=== PATIENT | female | born 1960 | race Caucasian/White ===

== ENCOUNTER 2024-04-12 13:05 | Inpatient (IN) | payer BC, SELFPAY ==
[2024-04-12] VITALS (17 sets, daily range): BP systolic 116–163; BP diastolic 66–99; PULSE 97–110; RESP 18–26; TEMP 36.8–36.9; O2SAT 81–98; BMI 17.0; BMI 16.4
--- NOTE | 2024-04-12 14:37 | ED.GENADULT ---
HPI - General Adult General Date Seen: 04/12/24 Chief complaint: Shortness of Breath/Dyspnea Stated complaint: SOB Time Seen by Provider: 04/12/24 14:06 History of Present Illness HPI narrative: Very pleasant 63-year-old female presenting to the ER today by EMS for evaluation of shortness of breath and hypoxia. She reports a longstanding history of COPD and she is on albuterol, Symbicort, nebulizers. She is not on home oxygen but she does have a [id number] home pulse oximeter and frequently will measure her saturations in the 86-88% range at home. She is not on long-term oral steroids. She began to feel sick about a week and half for 2 weeks ago with cough, sore throat, body aches, and fever and was positive for influenza. She is as on the whole she is over the influenza now and has been better for about a week. However she has a persistent cough. It is productive of green ?junky? sputum. No hemoptysis. For the past couple of days she has had increasing shortness of breath. She has been using all of her at home nebulizers and inhalers, in fact giving herself a neb 3 times last night and a couple times this morning but feels like they are not working. Last night on her home pulse oximeter she had sats in the 60s. She said she thought she was going to last night and wanted to call the ambulance but did not come in. She apparently is afraid of gossip from her coworkers. 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 She has a history of coronary disease with an angiogram and balloon angioplasty at age 36. No stents. No history of CHF. No recent swelling in her legs. No history of PE. No recent swelling in her legs. Related Data Home Medications ?Medication ?Instructions ?Recorded ?Confirmed albuterol sulfate 90 mcg/actuation 2 inh inhalation Q6H PRN 04/12/24 04/12/24 aerosol inhaler aspirin 325 mg capsule 325 mg PO DAILY 04/12/24 04/12/24 budesonide-formoterol HFA 160 2 puff inhalation BID 04/12/24 04/12/24 mcg-4.5 mcg/actuation aerosol inhaler fluticasone fur. 200 mcg-umeclid 1 ea inhalation DAILY 04/12/24 04/12/24 62.5 mcg-vilant 25 mcg inhalat.powder (Trelegy Ellipta) ipratropium 0.5 mg-albuterol 3 mg 1.5 ml inhalation Q6H PRN 04/12/24 04/12/24 (2.5 mg base)/3 mL nebulization soln olmesartan 20 mg tablet 20 mg PO DAILY 04/12/24 04/12/24 sertraline 50 mg tablet 50 mg PO QAM 04/12/24 04/12/24 simvastatin 40 mg tablet 40 mg PO QPM 04/12/24 04/12/24 Allergies Allergy/AdvReac Type Severity Reaction Status Date / Time latex Allergy Intermediate Verified 04/12/24 13:46 [facility] Social History Smoking Status: Current every day smoker What tobacco products do you use: cigarettes Do you use any of these nicotine containing products: None How often do you have a drink containing alcohol: never How often do you have six or more drinks on one occasion: Never AUDIT-C Alcohol total score: 0 Non-prescribed substance use: denies use Exam Narrative: Exam Narrative: Constitutional: Appears well-developed and well-nourished. Alert. Conversant. Non toxic. Breathing easily with nasal cannula oxygen sats 94%. However lungs are quite tight and very diminished lung sounds with wheezing bilaterally HENT: Head: Atraumatic. Nose: Nose normal. Mouth/Throat: Oral mucosa is clear and moist. no trismus. Pharynx normal. Tonsils symmetric. No tonsillar enlargement, erythema, or exudate. Eyes: Conjunctivae normal. EOM normal. Pupils equal, round, and reactive to light. No scleral icterus. Neck: Normal range of motion. Neck supple. No tracheal deviation present. Cardiovascular: Normal rate, regular rhythm. No gallop. No friction rub. No murmur heard. Symmetric radial artery pulses Pulmonary/Chest: Effort normal. No stridor. No respiratory distress. Very tight lung sounds with diminished aeration and bilateral wheezes. Questionable right basilar infiltrate Abdominal: Soft.. No distension. No mass. No tenderness. No rebound. No guarding. Musculoskeletal: RUE: Normal range of motion. No tenderness. No deformity LUE: Normal range of motion. No tenderness. No deformity RLE: Normal range of motion. No edema. No tenderness. No deformity LLE: Normal range of motion. No edema. No tenderness. No deformity Lymph: No cervical adenopathy. Neurological: Alert and oriented to person, place, and time. Normal strength. CN II-VII intact. No sensory deficit. GCS eye subscore is 4. GCS verbal subscore is 5. GCS motor subscore is 6. Normal coordination Skin: Skin is warm and dry. No rash noted. No pallor. Normal capillary refill. Psychiatric: Normal mood. Normal affect. Polite. Mental status normal. Const: Vital Signs, click to edit/add: Vital Signs - 24 hr 04/12/24 13:37 04/12/24 13:45 04/12/24 15:18 Temperature 98.5 F Pulse Rate Pulse Rate [Right Pulse Oximeter] 103 H Respiratory Rate 26 H Blood Pressure Blood Pressure [Ri ght Upper Arm] 155/96 H Pulse Oximetry 94 88 90 Oxygen Delivery Me thod Room Air Room Air Nasal Cannula Oxygen Flow Rate 2 2 04/12/24 15:20 04/12/24 15:30 04/12/24 15:31 Temperature Pulse Rate 100 102 H 101 H Pulse Rate [Right Pulse Oximeter] Respiratory Rate Blood Pressure 146/87 H Blood Pressure [Ri ght Upper Arm] Pulse Oximetry 97 95 94 Oxygen Delivery Me thod Nasal Cannula Nasal Cannula Nasal Cannula Oxygen Flow Rate 2 2 2 04/12/24 15:45 04/12/24 16:00 04/12/24 16:01 Temperature Pulse Rate 97 98 101 H Pulse Rate [Right Pulse Oximeter] Respiratory Rate Blood Pressure 116/90 H Blood Pressure [Ri ght Upper Arm] Pulse Oximetry 95 98 98 Oxygen Delivery Me thod Nasal Cannula Nasal Cannula Nasal Cannula Oxygen Flow Rate 2 2 2 04/12/24 16:15 04/12/24 16:30 04/12/24 16:34 Temperature Pulse Rate 107 H 106 H 106 H Pulse Rate [Right Pulse Oximeter] Respiratory Rate 26 H 18 21 Blood Pressure Blood Pressure [Ri ght Upper Arm] Pulse Oximetry 88 92 92 Oxygen Delivery Me thod Room Air Room Air Nasal Cannula Oxygen Flow Rate 2 Course Course ED Course: Recheck-says she feels slightly better after 1st DuoNeb. Repeat lung exam still reveals fairly tight wheezing bilaterally. I turned off her oxygen. Sats drifted down to about 89% on room air. 2nd DuoNeb ordered. Recheck-still on room air sats drifting down to 85%. Recheck-after 2nd DuoNeb lung sounds slightly improved but now seeming more diminished on the left than on the right. Still wheezy. Patient does not feel she can tolerate anymore bronchodilator this point because it makes her nauseous. Because of hypoxia placed back on nasal cannula, 2 L. Reevaluation(s) Reevaluation #1: Recheck-sats 85% on room air . It placed back on nasal cannula 2 L and sats came up to about 92-93. Vital Signs Vital signs: Initial Vital Signs Temperature 98.5 F 04/12/24 13:37 Temperature Source Temporal Artery Scan 04/12/24 13:37 Pulse Rate 103 H 04/12/24 13:37 Pulse Rhythm Regular 04/12/24 13:37 Pulse Strength 3+ Normal 04/12/24 13:37 Respiratory Rate 26 H 04/12/24 13:37 Blood Pressure 155/96 H 04/12/24 13:37 Blood Pressure Mean 115 H 04/12/24 13:37 Blood Pressure Position Sitting 04/12/24 13:37 Pulse Oximetry 94 04/12/24 13:37 Oxygen Delivery Method Room Air 04/12/24 13:37 Vital Signs Temperature 98.5 F 04/12/24 13:37 Pulse Rate 103 H 04/12/24 13:37 Respiratory Rate 26 H 04/12/24 13:37 Blood Pressure 155/96 H 04/12/24 13:37 Pulse Oximetry 94 04/12/24 13:37 Oxygen Delivery Method Room Air 04/12/24 13:37 Temperature 98.3 F 04/12/24 17:00 Pulse Rate 108 H 04/12/24 17:00 Respiratory Rate 20 04/12/24 17:00 Blood Pressure 163/99 H 04/12/24 17:00 Pulse Oximetry 81 L 04/12/24 17:00 Oxygen Delivery Method Room Air 04/12/24 17:00 Oxygen Flow Rate 2 04/12/24 16:34 Medications Administered Medications: Discontinued Medications Generic Name Dose Route Start Last Admin Trade Name Freq PRN Reason Stop Dose Admin Albuterol/Ipratropium 1 neb 04/12/24 14:30 04/12/24 15:03 Iprat-Albut 0.5-2.5 Mg/3 Ml Neb 04/12/24 14:31 1 neb ONCE ONE Administration Albuterol/Ipratropium 1 neb 04/12/24 15:53 04/12/24 16:00 Iprat-Albut 0.5-2.5 Mg/3 Ml Neb IH 04/12/24 15:54 1 neb ONCE ONE Administration Doxycycline Hyclate 100 mg 04/12/24 16:31 04/12/24 16:36 Doxycycline Hyclate 100 Mg PO 04/12/24 16:32 100 mg ONCE ONE Administration Methylprednisolone Sodium Succinate 125 mg 04/12/24 14:30 04/12/24 15:03 Methylprednisolone Sod Succ 62.5 Mg/Ml (125) IVP 04/12/24 14:31 125 mg ONCE ONE Administration Medical Decision Making MDM Narrative Medical decision making narrative: Them very pleasant 63-year-old female with what sounds like fairly severe COPD. She is on multiple controller medications but not on home oxygen her long-term oral steroids. She had influenza about a week or 2 ago and is largely gotten over that but has a persistent cough productive of chunky green sputum this week. She had worsening shortness of breath yesterday and last night had sats dangerously low down into the 60s on room air based on her home pulse oximetry readings. She has been trying to treat herself aggressively with her Symbicort, albuterol inhaler, nebulizers, and other COPD meds but is just not getting better. She gave herself and that just prior to coming into the ER and as result sats were up into the mid to high 80s when she presented at triage. Sats came up to the 90s on nasal cannula. Workup here shows no evidence for active influenza or COVID with negative COVID/influenza/RSV PCR. Chest x-ray is negative for pneumonia by my read but there is potentially an atypical pneumonia based on radiology reads. Also potential for CHF but clinically that is not present. I am strongly suspicious for an infectious etiology Laboratory workup does show leukocytosis also consistent with infection. She was treated with nebs and steroids here in the ER. Lung sounds are improving but still quite wheezy and tight. Patient received 2 DuoNebs here in the ER and will some improvement her lung sounds but persistent hypoxia with sats drifting down to about 85% a resting in bed breathing room air. Sats are fortunately improved nicely with nasal cannula. At this point she is not showing signs of altered mental status, progressive signs of respiratory fatigue or tachypnea where she is likely to require of story BiPAP or endotracheal intubation. Patient would prefer to go home but ultimately agrees to be admitted because of her significant hypoxia. strongly wants her to be admitted. Discussed with our hospitalist, Dr. Maya who graciously accepts the patient for admission Lab Data Labs: Lab Results 04/12/24 04/12/24 Range/Units 14:32 15:10 WBC 13.82 H (4.50-11.00) K/uL RBC 5.68 H (4.00-5.20) m/uL Hgb 16.1 H (12.0-16.0) gm/dL Hct 50.1 (33.0-51.0) % MCV 88 (80-100) fL MCH 28 (26-34) pg MCHC 32 (32-36) gm/dL RDW Coeff of Xiomy 14.5 (11.5-15.5) % Plt Count 438 (140-440) K/uL Neut % (Auto) 81.5 H (42.0-72.0) % Lymph % (Auto) 9.8 L (20-44) % [place] % (Auto) 7.6 (0.0-11.0) % Eos % (Auto) 0.6 (0.0-7.0) % Baso % (Auto) 0.1 (0.0-3.0) % Neut # (Auto) 11.30 H (1.7-7.0) K/uL Lymph # (Auto) 1.40 (0.90-2.90) K/uL [place] # (Auto) 1.10 H (0.00-0.90) K/UL Eos # (Auto) 0.10 (0.00-0.50) K/uL Baso # (Auto) 0.00 (0.00-0.30) K/uL Abs Immat Gran (auto) 0.10 (0.00-0.30) K/uL Imm/Tot Granulo (auto) 0.4 % Sodium 139 (135-149) mmol/L Potassium 3.6 (3.6-5.1) mmol/L Chloride 99 (96-114) mmol/L Carbon Dioxide 31 (20-32) mmol/L Anion Gap 9 (7-15) mEq/L BUN 13 (7-30) mg/dL Creatinine 0.5 (0.5-1.5) mg/dL Estimated Creat Clear 35.54 Estimated GFR 107 ml/min Glucose 96 (60-115) mg/dL Lactate 1.1 (0.5-1.9) mmol/L Calcium 9.9 (8.4-10.6) mg/dL SARS-CoV-2 (PCR) Negative SARS-CoV-2 (Negative) Influenza Type A (PCR) Negative PCR FLU A (Negative) Influenza Type B (PCR) Negative PCR FLU B (Negative) RSV (PCR) Negative PCR RSV (Negative) POC Troponin I 0.01 (0.01-0.04) ng/ml ECG Data Attestation: I personally reviewed and interpreted this ECG as follows: Interpretation: Sinus tachycardia (computer interpretation is atrial flutter with 2:1 av conduction but I think this is inaccurate.) Rate: 102 OR: 120 QRS axis: Normal axis. ST segment/T wave: No ST segment elevation or depression. QTc: 440 Discharge Plan Discharge Clinical Impression: Asthma exacerbation in COPD, Hypoxia, Atypical pneumonia Patient Disposition: Admitted As Observation
[2024-04-12] MEDS: IPRAT-ALBUT 0.5-2.5 MG/3 ML NEB 1 NEB IH ×4 (15:03→23:03)
[2024-04-12] MEDS: METHYLPREDNISOLONE SOD SUCC 62.5 MG/ML (125) 125 MG IVP (15:03)
[2024-04-12 15:22] LABS: Basophils Percent Auto 0.1 % (0.0-3.0); Eosinophils Percent Auto 0.6 % (0.0-7.0); Hematocrit 50.1 % (33.0-51.0); Hemoglobin* 16.1 gm/dL (12.0-16.0); Immature Granulocytes Pct Auto 0.4 %; Lymphocytes Percent Auto 9.8 % (20-44); Mean Corpuscular HGB Conc 32 gm/dL (32-36); Mean Corpuscular Hemoglobin 28 pg (26-34); Mean Corpuscular Volume 88 fL (80-100); Monocytes Percent Auto 7.6 % (0.0-11.0); Neutrophils Percent Auto 81.5 % (42.0-72.0); Platelet Count* 438 K/uL (140-440); RDW Coefficient of Variation % 14.5 % (11.5-15.5); Red Blood Count 5.68 m/uL (4.00-5.20); White Blood Count* 13.82 K/uL (4.50-11.00)
[2024-04-12 15:23] LABS: Lactate* 1.1 mmol/L (0.5-1.9)
[2024-04-12 15:25] LABS: Troponin, Point-of-Care* 0.01 ng/ml (0.01-0.04)
[2024-04-12 15:26] LABS: Slide Review Reflex No
[2024-04-12 15:46] LABS: Chloride* 99 mmol/L (96-114); Potassium* 3.6 mmol/L (3.6-5.1); Sodium* 139 mmol/L (135-149)
[2024-04-12 15:49] LABS: Anion Gap 9 mEq/L (7-15); Blood Urea Nitrogen* 13 mg/dL (7-30); Carbon Dioxide* 31 mmol/L (20-32); Creatinine* 0.5 mg/dL (0.5-1.5); Est. Creatinine Clearance* 35.54; Estimated Glomerular Filt Rate 107 ml/min; Glucose* 96 mg/dL (60-115)
[2024-04-12 15:50] LABS: Calcium* 9.9 mg/dL (8.4-10.6)
[2024-04-12 15:59] LABS: PCR FLU A Negative PCR FLU A (Negative); PCR FLU B Negative PCR FLU B (Negative); PCR RSV Negative PCR RSV (Negative); SARS PCR* Negative SARS-CoV-2 (Negative)
[2024-04-12] MEDS: DOXYCYCLINE HYCLATE 100 MG PO (16:36)
--- NOTE | 2024-04-12 17:39 | PM.IMHP1 ---
Hospitalist- H&P: HPI History of Present Illness Date Seen: 04/12/24 Chief complaint: SOB Narrative: Vicky Chang is a 63 year old female with past medical history of hypertension, coronary artery disease, COPD, tobacco use disorder who presents to ED due to shortness of breath. Patient states that she has a pulse oximeter that showed O2 sat going down to mid 60s the night before. Patient states that she is having chest tightness in addition to severe dyspnea with and without exertion. Patient denies fevers, chest pain, palpitations or lightheadedness. She states that she has a cough at baseline and white phlegm but about 2 days ago she started to have worsening cough and worsening phlegm production that is greenish in color. No home oxygen. She had influenza a infection about 10 days ago. Patient states that she is compliant on her Symbicort inhaler daily and a nebulizer daily. She denies frequent oral steroid use, denies admissions or intubations for COPD exacerbation. At the ED, patient was found hypoxic with O2 sat at 86%. Patient was also in sinus tachycardia. Chest x-ray does not show infiltrates or consolidation. Patient was given doxycycline orally and IV Solu-Medrol 125 mg at the ED and then admitted for further evaluation and management. Review of Systems Status of ROS: Reports: 6 or more systems reviewed and unremarkable except as noted in History and below [facility] Social History What is your current living situation?: I presently have a place to live Problems where you live: no known problems Problems where you live details: none In the past 12 months, utilities in danger of being shut off: no In past 12 months, lack of transportation kept you from medical appts, meetings, work, or getting things needed for daily living: no In the past 12 mos, have been you worried that your food would run out before you had money to buy more?: never true In the past 12 mos, the food you bought just didn't last and you didn't have money to buy more?: never true Highest level of school completed/degree received: 12th grade, no diploma Smoking Status: Current every day smoker What tobacco products do you use: cigarettes Smoking packs per day: 1 Smoking cigarettes per day: 20.0 Do you use any of these nicotine containing products: None How often do you have a drink containing alcohol: never How often do you have six or more drinks on one occasion: Never AUDIT-C Alcohol total score: 0 Non-prescribed substance use: denies use Caffeine: Yes (jenni nice) How often does anyone, including family, friends and others, physically hurt you: never How often does anyone, including family, friends and others, insult or talk down to you: never How often does anyone, including family, friends and others, threaten you with harm: never How often does anyone, including family, friends and others, scream or curse at you: never service: No Meds Home Medications and Allergies Home Medications ?Medication ?Instructions ?Recorded ?Confirmed ?Type albuterol sulfate 90 mcg/actuation 2 inh inhalation Q6H PRN 04/12/24 04/12/24 History aerosol inhaler aspirin 325 mg capsule 325 mg PO DAILY 04/12/24 04/12/24 History budesonide-formoterol HFA 160 2 puff inhalation BID 04/12/24 04/12/24 History mcg-4.5 mcg/actuation aerosol inhaler fluticasone fur. 200 mcg-umeclid 1 ea inhalation DAILY 04/12/24 04/12/24 History 62.5 mcg-vilant 25 mcg inhalat.powder (Trelegy Ellipta) ipratropium 0.5 mg-albuterol 3 mg 1.5 ml inhalation Q6H PRN 04/12/24 04/12/24 History (2.5 mg base)/3 mL nebulization soln olmesartan 20 mg tablet 20 mg PO DAILY 04/12/24 04/12/24 History sertraline 50 mg tablet 50 mg PO QAM 04/12/24 04/12/24 History simvastatin 40 mg tablet 40 mg PO QPM 04/12/24 04/12/24 History Allergies Allergy/AdvReac Type Severity Reaction Status Date / Time latex Allergy Intermediate Verified 04/12/24 13:46 Exam Narrative: Exam Narrative: Physical exam GENERAL: Thin pleasant lady, on O2 NC at 2L/min. HEAD AND NECK: Atraumatic, normocephalic CARDIOVASCULAR: RRR. Normal S1, S2. No murmurs. RESPIRATORY: Reduced air entry B/L. +ve wheezes. NEUROLOGY: Alert, awake, oriented X 3. Normal speech. PSYCH: Normal mood, normal affect. Const: Vital Signs, click to edit/add: Vital Signs - 24 hr 04/12/24 13:37 04/12/24 13:45 04/12/24 15:18 Temperature 98.5 F Pulse Rate Pulse Rate [Right Pulse Oximeter] 103 H Pulse Rate [Right Radial] Respiratory Rate 26 H Blood Pressure Blood Pressure [Ri ght Arm] Blood Pressure [Ri ght Upper Arm] 155/96 H Pulse Oximetry 94 88 90 Oxygen Delivery Me thod Room Air Room Air Nasal Cannula Oxygen Flow Rate 2 2 04/12/24 15:20 04/12/24 15:30 04/12/24 15:31 Temperature Pulse Rate 100 102 H 101 H Pulse Rate [Right Pulse Oximeter] Pulse Rate [Right Radial] Respiratory Rate Blood Pressure 146/87 H Blood Pressure [Ri ght Arm] Blood Pressure [Ri ght Upper Arm] Pulse Oximetry 97 95 94 Oxygen Delivery Me thod Nasal Cannula Nasal Cannula Nasal Cannula Oxygen Flow Rate 2 2 2 04/12/24 15:45 04/12/24 16:00 04/12/24 16:01 Temperature Pulse Rate 97 98 101 H Pulse Rate [Right Pulse Oximeter] Pulse Rate [Right Radial] Respiratory Rate Blood Pressure 116/90 H Blood Pressure [Ri ght Arm] Blood Pressure [Ri ght Upper Arm] Pulse Oximetry 95 98 98 Oxygen Delivery Me thod Nasal Cannula Nasal Cannula Nasal Cannula Oxygen Flow Rate 2 2 2 04/12/24 16:15 04/12/24 16:30 04/12/24 16:34 Temperature Pulse Rate 107 H 106 H 106 H Pulse Rate [Right Pulse Oximeter] Pulse Rate [Right Radial] Respiratory Rate 26 H 18 21 Blood Pressure Blood Pressure [Ri ght Arm] Blood Pressure [Ri ght Upper Arm] Pulse Oximetry 88 92 92 Oxygen Delivery Me thod Room Air Room Air Nasal Cannula Oxygen Flow Rate 2 04/12/24 17:00 Temperature 98.3 F Pulse Rate Pulse Rate [Right Pulse Oximeter] Pulse Rate [Right Radial] 108 H Respiratory Rate 20 Blood Pressure Blood Pressure [Ri ght Arm] 163/99 H Blood Pressure [Ri ght Upper Arm] Pulse Oximetry 81 L Oxygen Delivery Me thod Room Air Oxygen Flow Rate Hospitalist - H&P: Result Labs Labs: Short CBC 04/12/24 Range/Units 15:10 WBC 13.82 H (4.50-11.00) K/uL Hgb 16.1 H (12.0-16.0) gm/dL Hct 50.1 (33.0-51.0) % Plt Count 438 (140-440) K/uL [facility] 04/12/24 15:10 Sodium 139 Potassium 3.6 Chloride 99 Carbon Dioxide 31 BUN 13 Creatinine 0.5 Glucose 96 Calcium 9.9 ECG Attestation: I personally reviewed and interpreted this ECG as follows: ECG interpretation date: 04/12/24 Interpretation: Sinus tachycardia Normal QTC Imaging Chest x-ray: Attestation: I have reviewed the pertinent imaging results. Radiologist's impression: Indication: Productive cough, hypoxia and recent influenza Comparison: None available. Technique: PA and lateral views of the chest Findings: There is hyperinflation and diffuse interstitial thickening with basilar atelectasis and parenchymal scar without dense consolidation, effusion, or pneumothorax. The cardiomediastinal silhouette is within normal limits. The bony thorax is grossly intact. Impression: Hyperinflation with diffuse interstitial thickening which may represent pulmonary vascular congestion and/or bronchial prominence in the setting of atypical infectious changes. No dense consolidation. Dictated by Wenceslao Hernandez MD @ 04/12/2024 3:19:23 PM Assessment and Plan Assessment and plan (1) Acute on chronic hypoxic respiratory failure: Problem comment: -Hypoxia, worsening cough and worsening phlegm production that is greenish in color. Needing O2 NC at 2 L/min. -No home oxygen. -She had influenza a infection about 10 days ago. -Patient states that she is compliant on her Symbicort inhaler daily and a nebulizer daily. -She denies frequent oral steroid use, denies admissions or intubations for COPD exacerbation. -Ordered VBG, no AG on BMP. -ordered Solu-Medrol 80 mg q.8 hours -start azithromycin 500 mg q.day -DuoNeb nebulizer and budesonide nebulizer. Status: Acute (2) COPD exacerbation: Problem comment: -as above -Patient needs outpatient evaluation by senior technical specialist to better control her COPD -assess for need for home oxygen Status: Acute (3) Coronary artery disease: Problem comment: -patient states that she had an MRI once she was 36 years old and that her catheterization showed high-grade blockage but she was not stented. -I discussed with the patient the need for more evaluation of her coronary artery disease as an outpatient by a stress test. -EKG does not show ischemic changes Status: Acute (4) Hypertension: Status: Acute Total Time Spent Total Time Spent: Time spent: Today I spent 75 minutes seeing the patient, discussing the patient with ER staff, reviewing Expanse and EPIC notes/diagnostics, discussing the care plan with our care time that includes social work, PT/OT, pharmacy, RT, nursing home and documenting my impressions and plan in the medical record.
[2024-04-12] MEDS: ENOXAPARIN 30 MG/0.3ML INJ SUBCUT (18:41)
[2024-04-12] MEDS: NICOTINE 14 mg PATCH 1 PATCH TRANSDERMA (18:43)
--- NOTE | 2024-04-12 19:12 | PC.NURSE ---
End of Shift: Patient pleasant and cooperative arrived to floor about 1710. Patient hypertensive on admission but stable, lungs diminished, BS WNL, IV SL and intact. Patient on 0.5 L NC sating 90-91%. Patient with moist cough that is productive at times, patient reports sputum is green. Patient denies pain, and independent in room. Patient with small appetite eating about 25% of dinner, tolerating regular diet and urinating well.
[2024-04-12] MEDS: AZITHROMYCIN 250 MG TABLET 500 MG PO (20:43)
[2024-04-12] MEDS: SODIUM CHLORIDE 0.9 % (FLUSH) 10 ML SYRINGE 5 ML IVF (21:17)
[2024-04-12] MEDS: METHYLPREDNISOLONE SOD SUCC 62.5 MG/ML (125) 80 MG IVP (22:56)
[2024-04-12 23:57] LABS: HCO3 VBG 32 mmol/L (21-28); PCO2 VBG 54 mmHG (40-50); PO2 VBG 35.7 mmHG (25-47); pH VBG 7.384 (7.32-7.43)
[2024-04-13] VITALS (11 sets, daily range): BP systolic 114–133; BP diastolic 70–87; PULSE 67–109; RESP 18–24; TEMP 37.2–37.3; O2SAT 88–90
[2024-04-13 00:30] LABS: Troponin I* 0.01 ng/mL (0.01-0.04)
[2024-04-13] MEDS: IPRAT-ALBUT 0.5-2.5 MG/3 ML NEB 1 NEB IH ×4 (06:08→23:38)
[2024-04-13 06:33] LABS: Hematocrit 46.6 % (33.0-51.0); Hemoglobin* 15.4 gm/dL (12.0-16.0); Mean Corpuscular HGB Conc 33 gm/dL (32-36); Mean Corpuscular Hemoglobin 29 pg (26-34); Mean Corpuscular Volume 88 fL (80-100); Platelet Count* 421 K/uL (140-440); Red Blood Count 5.28 m/uL (4.00-5.20); White Blood Count* 9.53 K/uL (4.50-11.00)
[2024-04-13 06:36] LABS: Slide Review Reflex No
[2024-04-13 06:53] LABS: Chloride* 99 mmol/L (96-114); Potassium* 4.1 mmol/L (3.6-5.1); Sodium* 137 mmol/L (135-149)
[2024-04-13 06:56] LABS: Anion Gap 8 mEq/L (7-15); Blood Urea Nitrogen* 13 mg/dL (7-30); Carbon Dioxide* 30 mmol/L (20-32); Creatinine* 0.5 mg/dL (0.5-1.5); Est. Creatinine Clearance* 34.45; Estimated Glomerular Filt Rate 107 ml/min
[2024-04-13 06:57] LABS: Glucose* 151 mg/dL (60-115); Magnesium* 1.9 mg/dL (1.5-2.6)
[2024-04-13] MEDS: METHYLPREDNISOLONE SOD SUCC 62.5 MG/ML (125) 80 MG IVP (07:30)
--- NOTE | 2024-04-13 07:45 | PC.NURSE ---
Pt is alert and oriented x3. Afebrile. Pt denies pain, chest pain, N/V and SOB. Pt lung sounds have course crackles and expiratory wheezing. Pt has intermittent productive cough with green thick colored sputum. Pt on 0.5L of O2 via nasal cannula throughout night to maintain O2 stats of 88% and above. Pt is up ad tessa in room. ?
[2024-04-13] MEDS: SERTRALINE 50 MG TABLET PO (08:54)
[2024-04-13] MEDS: ASPIRIN EC 325 MG TABLET PO (08:54)
[2024-04-13] MEDS: BUDESONIDE 0.5 MG/2ML NEB NEB ×2 (08:54→20:57)
[2024-04-13] MEDS: OLMESARTAN MEDOXOMIL 20 MG TABLET PO (08:54)
[2024-04-13] MEDS: SODIUM CHLORIDE 0.9 % (FLUSH) 10 ML SYRINGE 5 ML IVF ×2 (08:55→20:57)
[2024-04-13] MEDS: SIMVASTATIN 40 MG TABLET PO (08:57)
--- NOTE | 2024-04-13 09:55 | NUTR.NU ---
RDN with nutrition screen related to underweight BMI and diet education related to heart healthy diet order. Patient admitted for respiratory failure and COPD exacerbation. Current weight 81lb 7oz; height 4ft 11in; BMI 16.4 kg/m2. Patient reports her weight has been stable recently and that she has also had a thin body type. Current diet is Heart Healthy. She reports not following a specific diet at home and eating a variety of foods. RDN offered nutrition supplements, patient refused at this time. Patient is aware of available snacks. Patient requesting diet order change to Regular. RDN informed MD of this, MD gave verbal order to change diet order to Regular. No nutrition interventions at this time. RDN will continue to monitor and follow-up prn.
--- NOTE | 2024-04-13 09:58 | PM.IMPN1 ---
Progress Note: A&P Assessment and plan (1) Acute on chronic hypoxic respiratory failure: Problem details: -Hypoxia, requiring 0.5-2L of supplemental oxygen (does not use home O2) -associated symptoms include worsening cough and worsening phlegm production, no hemoptysis -Influenza A approximately 10 days prior to admission -history of COPD (On Symbicort, nebs at home) -no previous admissions or intubations for COPD -treatment: Doxycycline and Ceftriaxone, steroids, nebs,?RT following Status: Acute (2) COPD exacerbation: Problem details: -per above -recommend outpatient Pulmonology f/u Status: Acute (3) Coronary artery disease: Problem details: -per Epic, angiogram 1996: High grade circumflex stenosis successfully balloon angioplastied. Moderate stenosis distal dominant right coronary artery not treated -reassuring troponin and EKG at this time -on ASA, ARB, statin -outpatient f/u with PCP and Cardiology Status: Acute (4) Hypertension: Problem details: -age appropriate control on home medications Status: Acute Plan - requires at least one more day in the hospital given need for supplemental oxygen and persistent hypoxia - continue medications per above - RT following - Lovenox for ppx - updated at bedside, questions answered Subjective Date Seen: 04/13/24 Interval history: Vicky was admitted to the hospital last night for acute hypoxic respiratory failure in the setting of known COPD exacerbation, recent Influenza A infection. She required up to 2L of supplemental oxygen overnight, this morning she is intermittently tolerating RA at rest (but occasionally has saturations as low as 83% at rest). No chest pain, no LE edema. On steroids, nebs, abx. Would like to transition from Azithromcyin to Doxycycline, no other concerns for hospitalist team this morning. RT following. Exam Narrative: Exam Narrative: GEN: Alert and oriented, sitting comfortably in bed. 4-5 word dyspnea noted HEENT: EOMIs bilaterally, no scleral icterus CV: RRR, No concerning murmurs R: Expiratory wheezing throughout, poor bibasilar air movement Ext: wwp, no concerning edema Skin: No concerning skin lesions or rashes on exposed skin Neuro: Nonfocal Psych: Appropriate Const: Vital Signs, click to edit/add: Vital Signs - 24 hr 04/12/24 13:37 04/12/24 13:45 04/12/24 15:18 Temperature 98.5 F Pulse Rate Pulse Rate [Right Pulse Oximeter] 103 H Pulse Rate [Right Radial] Respiratory Rate 26 H Blood Pressure Blood Pressure [Le ft Arm] Blood Pressure [Ri ght Arm] Blood Pressure [Ri ght Upper Arm] 155/96 H Pulse Oximetry 94 88 90 Oxygen Delivery Me thod Room Air Room Air Nasal Cannula Oxygen Flow Rate 2 2 04/12/24 15:20 04/12/24 15:30 04/12/24 15:31 Temperature Pulse Rate 100 102 H 101 H Pulse Rate [Right Pulse Oximeter] Pulse Rate [Right Radial] Respiratory Rate Blood Pressure 146/87 H Blood Pressure [Le ft Arm] Blood Pressure [Ri ght Arm] Blood Pressure [Ri ght Upper Arm] Pulse Oximetry 97 95 94 Oxygen Delivery Me thod Nasal Cannula Nasal Cannula Nasal Cannula Oxygen Flow Rate 2 2 2 04/12/24 15:45 04/12/24 16:00 04/12/24 16:01 Temperature Pulse Rate 97 98 101 H Pulse Rate [Right Pulse Oximeter] Pulse Rate [Right Radial] Respiratory Rate Blood Pressure 116/90 H Blood Pressure [Le ft Arm] Blood Pressure [Ri ght Arm] Blood Pressure [Ri ght Upper Arm] Pulse Oximetry 95 98 98 Oxygen Delivery Me thod Nasal Cannula Nasal Cannula Nasal Cannula Oxygen Flow Rate 2 2 2 04/12/24 16:15 04/12/24 16:30 04/12/24 16:34 Temperature Pulse Rate 107 H 106 H 106 H Pulse Rate [Right Pulse Oximeter] Pulse Rate [Right Radial] Respiratory Rate 26 H 18 21 Blood Pressure Blood Pressure [Le ft Arm] Blood Pressure [Ri ght Arm] Blood Pressure [Ri ght Upper Arm] Pulse Oximetry 88 92 92 Oxygen Delivery Me thod Room Air Room Air Nasal Cannula Oxygen Flow Rate 2 04/12/24 17:00 04/12/24 18:09 04/12/24 18:50 Temperature 98.3 F Pulse Rate Pulse Rate [Right Pulse Oximeter] Pulse Rate [Right Radial] 108 H Respiratory Rate 20 20 Blood Pressure Blood Pressure [Le ft Arm] Blood Pressure [Ri ght Arm] 163/99 H Blood Pressure [Ri ght Upper Arm] Pulse Oximetry 81 L 90 91 Oxygen Delivery Me thod Room Air Nasal Cannula Oxygen Flow Rate 0.5 04/12/24 19:00 04/12/24 23:50 04/12/24 23:50 Temperature 98.5 F Pulse Rate Pulse Rate [Right Pulse Oximeter] Pulse Rate [Right Radial] 110 H 109 H Respiratory Rate 20 18 18 Blood Pressure Blood Pressure [Le ft Arm] Blood Pressure [Ri ght Arm] 131/98 H Blood Pressure [Ri ght Upper Arm] Pulse Oximetry 92 92 Oxygen Delivery Me thod Nasal Cannula Nasal Cannula Oxygen Flow Rate 0.5 0.5 04/12/24 23:50 04/13/24 00:26 04/13/24 03:55 Temperature 98.4 F 99.0 F Pulse Rate 101 H Pulse Rate [Right Pulse Oximeter] Pulse Rate [Right Radial] 109 H 102 H Respiratory Rate 18 18 Blood Pressure Blood Pressure [Le ft Arm] Blood Pressure [Ri ght Arm] 121/66 123/87 Blood Pressure [Ri ght Upper Arm] Pulse Oximetry 92 90 Oxygen Delivery Me thod Nasal Cannula Nasal Cannula Oxygen Flow Rate 0.5 0.5 04/13/24 08:49 Temperature 98.9 F Pulse Rate Pulse Rate [Right Pulse Oximeter] Pulse Rate [Right Radial] 104 H Respiratory Rate 24 Blood Pressure Blood Pressure [Le ft Arm] 129/78 Blood Pressure [Ri ght Arm] Blood Pressure [Ri ght Upper Arm] Pulse Oximetry 90 Oxygen Delivery Me thod Room Air Oxygen Flow Rate Labs Labs: Laboratory Results - last 24 hr 04/12/24 04/12/24 04/12/24 14:32 15:10 22:42 WBC 13.82 H RBC 5.68 H Hgb 16.1 H Hct 50.1 MCV 88 MCH 28 MCHC 32 RDW Coeff of Xiomy 14.5 Plt Count 438 Neut % (Auto) 81.5 H Lymph % (Auto) 9.8 L [place] % (Auto) 7.6 Eos % (Auto) 0.6 Baso % (Auto) 0.1 Neut # (Auto) 11.30 H Lymph # (Auto) 1.40 [place] # (Auto) 1.10 H Eos # (Auto) 0.10 Baso # (Auto) 0.00 Abs Immat Gran (auto) 0.10 Imm/Tot Granulo (auto) 0.4 VBG pH 7.384 VBG pCO2 54 H VBG pO2 35.7 VBG HCO3 32 H Sodium 139 Potassium 3.6 Chloride 99 Carbon Dioxide 31 Anion Gap 9 BUN 13 Creatinine 0.5 Estimated Creat Clear 35.54 Estimated GFR 107 Glucose 96 Lactate 1.1 Calcium 9.9 Magnesium Troponin I 0.01 SARS-CoV-2 (PCR) Negative SARS-CoV-2 Influenza Type A (PCR) Negative PCR FLU A Influenza Type B (PCR) Negative PCR FLU B RSV (PCR) Negative PCR RSV Lab Acknowledgement Test Added POC Troponin I 0.01 04/12/24 04/13/24 04/13/24 22:47 05:59 09:36 WBC 9.53 RBC 5.28 H Hgb 15.4 Hct 46.6 MCV 88 MCH 29 MCHC 33 RDW Coeff of Xiomy Plt Count 421 Neut % (Auto) Lymph % (Auto) [place] % (Auto) Eos % (Auto) Baso % (Auto) Neut # (Auto) Lymph # (Auto) [place] # (Auto) Eos # (Auto) Baso # (Auto) Abs Immat Gran (auto) Imm/Tot Granulo (auto) VBG pH VBG pCO2 VBG pO2 VBG HCO3 Sodium 137 Potassium 4.1 Chloride 99 Carbon Dioxide 30 Anion Gap 8 BUN 13 Creatinine 0.5 Estimated Creat Clear 34.45 Estimated GFR 107 Glucose 151 H Lactate Calcium 10.0 Magnesium 1.9 Troponin I SARS-CoV-2 (PCR) Influenza Type A (PCR) Influenza Type B (PCR) RSV (PCR) Lab Acknowledgement Test Added Test Added POC Troponin I
[2024-04-13 10:22] LABS: Troponin I* < 0.01 ng/mL (0.01-0.04)
[2024-04-13] MEDS: predniSONE 20 MG TABLET 40 MG PO (10:26)
[2024-04-13] MEDS: cefTRIAXone 1 GM in 0.9 % SODIUM CHLORIDE Mini-bag 100 ML IVPB (10:27)
[2024-04-13] MEDS: 0.9 % SODIUM CHLORIDE 250 ml IV (10:30)
[2024-04-13] MEDS: ACETAMINOPHEN 325 MG TABLET 650 MG PO (12:51)
[2024-04-13] MEDS: LORazepam 1 MG TABLET 0.5 MG PO (14:05)
--- NOTE | 2024-04-13 16:45 | RESP.RT ---
Pt seen in bed. On RA SPO2 93% Scattered expiratory wheezing. PT does not want to go home on oxygen. Will evaluate status in AM
[2024-04-13] MEDS: ENOXAPARIN 30 MG/0.3ML INJ SUBCUT (18:04)
[2024-04-13] MEDS: NICOTINE 14 mg PATCH 1 PATCH TRANSDERMA (18:04)
--- NOTE | 2024-04-13 19:01 | PC.NURSE ---
End of Shift: Patient pleasant and cooperative. Patient vitally stable, lungs diminished with 02 sats at 88% or above on RA, BS WNL, IV SL and intact. Patient denies pain, tylenol was given once for headache today. Patient tolerating regular diet with small appetite. Patient independent, urinating well, no BM today. Nicotine patch applied to left shoulder.
[2024-04-13] MEDS: DOXYCYCLINE HYCLATE 100 MG PO (20:57)
[2024-04-13] MEDS: OMEPRAZOLE 20 MG CAPSULE DR PO (20:57)
[2024-04-14 03:00] VITALS: PULSE 85; RESP 16; O2SAT 91
--- NOTE | 2024-04-14 05:15 | PC.NURSE ---
[id number] Pt ind in room. maintains O2 sats >90% while awake on RA, requires 0.5 LPM O2 NC while asleep to maintain O2 sats >88%. Pt O2 will decrease to 84% while asleep on RA. intermittent cough, productive with thick phlegm per pt report.
[2024-04-14] MEDS: IPRAT-ALBUT 0.5-2.5 MG/3 ML NEB 1 NEB IH (06:00)
[2024-04-14 06:22] LABS: Basophils Percent Auto 0.1 % (0.0-3.0); Eosinophils Percent Auto 0.1 % (0.0-7.0); Hematocrit 44.1 % (33.0-51.0); Hemoglobin* 14.3 gm/dL (12.0-16.0); Immature Granulocytes Pct Auto 0.3 %; Lymphocytes Percent Auto 10.4 % (20-44); Mean Corpuscular HGB Conc 32 gm/dL (32-36); Mean Corpuscular Hemoglobin 29 pg (26-34); Mean Corpuscular Volume 88 fL (80-100); Monocytes Percent Auto 7.1 % (0.0-11.0); Platelet Count* 413 K/uL (140-440); Red Blood Count 5.01 m/uL (4.00-5.20); White Blood Count* 14.87 K/uL (4.50-11.00)
[2024-04-14 06:31] LABS: Slide Review Reflex No
[2024-04-14 06:38] LABS: Chloride* 102 mmol/L (96-114); Sodium* 138 mmol/L (135-149)
[2024-04-14 06:39] LABS: Potassium* 3.9 mmol/L (3.6-5.1)
[2024-04-14 06:41] LABS: Blood Urea Nitrogen* 17 mg/dL (7-30); Creatinine* 0.6 mg/dL (0.5-1.5); Est. Creatinine Clearance* 34.08; Estimated Glomerular Filt Rate 102 ml/min
[2024-04-14 06:42] LABS: Anion Gap 2 mEq/L (7-15); Calcium* 9.6 mg/dL (8.4-10.6); Carbon Dioxide* 34 mmol/L (20-32); Glucose* 96 mg/dL (60-115)
[2024-04-14 07:00] VITALS: RESP 16; RESP 18; O2SAT 92
--- NOTE | 2024-04-14 10:14 | PM.DS1 ---
DS: Providers Provider Date Seen: 04/14/24 Date of admission: 04/13/24 08:09 Primary care physician: Ashley Warren PA-C Admitting Clinician: Laila Maya MD Attending Physician on discharge: Yuliya Cobb MD Date of Discharge: 04/14/24 DS: Diagnosis Discharge Diagnosis (1) Acute on chronic hypoxic respiratory failure: Status: Acute Problem details: -Hypoxia, requiring 0.5-2L of supplemental oxygen (does not use home O2) -associated symptoms include worsening cough and worsening phlegm production, no hemoptysis -Influenza A approximately 10 days prior to admission -history of COPD (On Symbicort, nebs at home) -no previous admissions or intubations for COPD -treatment: Doxycycline and Ceftriaxone, steroids, nebs,?RT following -stable on RA, ready for d/c home on 04/14/24 (2) Hypertension: Status: Acute Problem details: -age appropriate control on home medications (3) Coronary artery disease: Status: Acute Problem details: -per Epic, angiogram 1996: High grade circumflex stenosis successfully balloon angioplastied. Moderate stenosis distal dominant right coronary artery not treated -reassuring troponin and EKG during stay -on ASA, ARB, statin -outpatient f/u with PCP and Cardiology (4) COPD (chronic obstructive pulmonary disease): Status: Acute Problem details: - continue home Symbicort DS: Summary Hospital Course Hospital Course: Vicky was admitted to the hospital on 04/12 for acute hypoxic respiratory failure in the setting of known COPD exacerbation, recent Influenza A infection. She required up to 2L of supplemental oxygen during first evening, then 0.5-1L with activity during stay day of hospitalization, stable on RA on 04/14/24 and requesting d/c home. Comorbidities remained stable. Treated with steroids, nebs, antibiotics, followed by RT. Discharging home on Doxycycline, Prednisone taper. Recommend close PCP followup with Pulmonology/Cardiology referrals given comorbidities. Time Spent with Patient Time attestation: Total time spent providing and/or coordinating discharge services: Time spent: Greater than 30 minutes Specific discharge activities: Medication reconciliation, consultation with RT, patient updates Exam Narrative: Exam Narrative: GEN: AlertAnd oriented, sitting comfortably in bed and nontoxic HEENT: EOMIs bilaterally, no scleral icterus CV: RRR, No concerning murmurs R: Mild expiratory wheezing, air movement has improved Ext: wwp, no concerning edema Skin: No concerning skin lesions or rashes on exposed skin Neuro: Nonfocal Psych: Appropriate Const: Vital Signs, click to edit/add: Vital Signs - 24 hr 04/13/24 11:08 04/13/24 14:31 04/13/24 14:41 Temperature 99 F 99 F Pulse Rate [Pulse Oximeter] 109 H 109 H Pulse Rate [Right Radial] 67 Respiratory Rate 22 18 18 Blood Pressure [Le ft Arm] 133/84 114/72 Pulse Oximetry 88 88 Oxygen Delivery Me thod Room Air Room Air Oxygen Flow Rate 04/13/24 14:41 04/13/24 17:22 04/13/24 18:09 Temperature Pulse Rate [Pulse Oximeter] Pulse Rate [Right Radial] Respiratory Rate 18 Blood Pressure [Le ft Arm] Pulse Oximetry 88 90 88 Oxygen Delivery Me thod Room Air Room Air Oxygen Flow Rate 04/13/24 19:00 04/13/24 23:00 04/13/24 23:00 Temperature 99.1 F Pulse Rate [Pulse Oximeter] 108 H 101 H Pulse Rate [Right Radial] Respiratory Rate 20 20 20 Blood Pressure [Le ft Arm] 115/70 Pulse Oximetry 90 90 Oxygen Delivery Me thod Room Air Nasal Cannula Oxygen Flow Rate 0.5 04/13/24 23:00 04/14/24 03:00 Temperature Pulse Rate [Pulse Oximeter] 101 H 85 Pulse Rate [Right Radial] Respiratory Rate 20 16 Blood Pressure [Le ft Arm] 122/76 Pulse Oximetry 90 91 Oxygen Delivery Me thod Nasal Cannula Nasal Cannula Oxygen Flow Rate 0.5 0.5 DS: Data Data Completed and Pending Labs on day of discharge: Labs from last 24 hours 04/14/24 04/13/24 05:45 05:59 WBC 14.87 H RBC 5.01 Hgb 14.3 Hct 44.1 MCV 88 MCH 29 MCHC 32 RDW Coeff of Xiomy 15.0 Plt Count 413 Neut % (Auto) 82.0 H Lymph % (Auto) 10.4 L [place] % (Auto) 7.1 Eos % (Auto) 0.1 Baso % (Auto) 0.1 Neut # (Auto) 12.20 H Lymph # (Auto) 1.50 [place] # (Auto) 1.10 H Eos # (Auto) 0.00 Baso # (Auto) 0.00 Abs Immat Gran (auto) 0.00 Imm/Tot Granulo (auto) 0.3 Sodium 138 Potassium 3.9 Chloride 102 Carbon Dioxide 34 H Anion Gap 2 L BUN 17 Creatinine 0.6 Estimated Creat Clear 34.08 Estimated GFR 102 Glucose 96 Calcium 9.6 Troponin I < 0.01 L Discharge Plan Discharge Disposition: Home, Self-Care Date of Admission: 04/13/24 08:09 Attending Provider on Discharge: Yuliya Cobb Primary Care Provider: Ashley Warren Condition: Improved Anticipated Discharge Date/Time: 04/14/24 10:09 Discharge Medications: New budesonide-formoterol [Symbicort] 160-4.5 mcg/actuation HFA aerosol inhaler 2 puff inhalation BID Qty: 10.2 0RF Rx Instructions: please note dose increase, fill new Rx 04/14/24 please prednisone 10 mg tablet 10 mg PO DIRECTED 19 Days Qty: 32 0RF Rx Instructions: 4 tabs x2d, then 2 tabs x7d, then 1 tab x10d, then stop doxycycline hyclate 100 mg capsule 100 mg PO BID Qty: 10 0RF Continued ipratropium-albuterol 0.5 mg-3 mg(2.5 mg base)/3 mL solution for nebulization 1.5 ml INHALATION Q6H PRN simvastatin 40 mg tablet 40 mg PO QPM albuterol sulfate 90 mcg/actuation HFA aerosol inhaler 2 inh INHALATION Q6H PRN sertraline 50 mg tablet 50 mg PO QAM olmesartan 20 mg tablet 20 mg PO DAILY aspirin 325 mg capsule 325 mg PO DAILY lorazepam [Ativan] 1 mg tablet 0.5 - 1 mg PO DAILY PRN Discontinued budesonide-formoterol 160-4.5 mcg/actuation HFA aerosol inhaler 2 puff INHALATION BID Trelegy Ellipta 200-62.5-25 mcg blister with device 1 ea INHALATION DAILY Discharge Orders: Discharge Order (Routine); Ordered 04/14/24 Ordered By: Yuliya Cobb Additional Instructions: Finish Doxycycline and Prednisone (both sent to [facility]) Stay on Symbicort, keep an eye on your home O2 saturations. Activity Level: No strenuous activity Discharge Diet: Regular Follow Up Appointments: Ashley Warren PAYolande [Primary Care Provider] - (hospital f/u 7-10 days, discuss referrals to Pulmonology and Cardiology ) Forms: [employer] Info Instructions
[2024-04-14] MEDS: predniSONE 20 MG TABLET 40 MG PO (10:29)
[2024-04-14] MEDS: OLMESARTAN MEDOXOMIL 20 MG TABLET PO (10:29)
[2024-04-14] MEDS: SERTRALINE 50 MG TABLET PO (10:30)
[2024-04-14] MEDS: DOXYCYCLINE HYCLATE 100 MG PO (10:30)
[2024-04-14] MEDS: ASPIRIN EC 325 MG TABLET PO (10:30)
[2024-04-14] MEDS: OMEPRAZOLE 20 MG CAPSULE DR PO (10:30)
[2024-04-14] MEDS: BUDESONIDE 0.5 MG/2ML NEB NEB (10:30)
--- NOTE | 2024-04-14 14:24 | PC.NURSE ---
Pt up in room independent. Pt spoke with RT Laurie and was given and educated on Arobika use. 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 Pt was able to maintain sats in low 90's on RA. IV DC'd, cath tip intact. DC instructions given verbally and in writing to pt. All questions answered. Pt understands follow up plan and to call m/s if she has any immediate questions she needs answered. DC with @[id number] via w/c to return home.
== END 2024-04-14 11:57 | disposition home or self-care (01) | DRG 133 ==
LOC: ED 14:54 → MEDSURG 16:54
PROVIDERS: Family Medicine; Admitting Provider Student in an Organized Health Care Education/Training Program; Emergency Provider Emergency Medicine; PCP Physician Assistant Medical; Visit Provider Student in an Organized Health Care Education/Training Program
DX: J96.21 Acute and chronic respiratory failure with hypoxia (principal); J44.1 Chronic obstructive pulmonary disease with (acute) exacerbation; J10.1 Influenza due to other identified influenza virus with other respiratory manifestations; I25.10 Atherosclerotic heart disease of native coronary artery without angina pectoris; I10 Essential (primary) hypertension; F17.210 Nicotine dependence, cigarettes, uncomplicated; Z68.1 Body mass index [BMI] 19.9 or less, adult; R63.6 Underweight
CPT/HCPCS: 36415; 71046; 80048; 82803; 83605; 83735; 84484; 85025; 85027; 87631; 93005; 94761; 99284; 99285; A9270; G0378; J0696; J1650; J2919; J7050; J7512; J7626; S4990

== ENCOUNTER 2025-01-10 09:39 | Outpatient (CLI) | payer BC, SELFPAY ==
--- NOTE | 2025-01-10 10:00 | CRLHL7_ITS ---
For Patients: As a result of the Century Cures Act, medical imaging exams and procedure reports are released immediately into your electronic medical record. You may view this report before your referring provider. If you have questions, please contact your health care provider. Indication: COPD WITH CHRONIC BRONCHITIS Technique: Noncontrast CT chest Please note that all CT scans at this facility use dose modulation, iterative reconstruction, and/or weight-based dosing when appropriate to reduce radiation dose to as low as reasonably achievable. Comparison: Chest x-ray 04/12/2024 Findings: Old right 7th rib fracture is present. No acute fracture. Upper abdomen unremarkable. Atherosclerotic changes. Visualized thyroid within normal limits. No adenopathy. There is a noncalcified nodule within the right upper lobe which measures 7.1 millimeters, 3/16, 4/33. Additional nodule in the right upper lobe measures 2.9 millimeters, 3/20. Nodular density within the anterior right upper lobe measures 1.2 cm, 3/26, 4/16. Right apical nodule measures 3.5 millimeters, 3/9. A few scattered 3 millimeter or less nodules are present elsewhere within the right lung. Scarring noted in the right middle lobe. Nodule within the left lower lobe measures 4.5 millimeters, 3/40. Left upper lobe nodule measures 3.2 millimeters, 3/22. Additional nodule in the left upper lobe measures 3.6 millimeters, 3/18. COPD/emphysema. No pleural or pericardial effusion. No pulmonary edema. Impression: Bilateral pulmonary nodules, including a lobular 7.1 millimeter right upper lobe nodule in the setting of COPD/emphysema. In addition, there is a more spiculated nodule within the right upper lobe which measures 9.6 x 1.2 cm. Both of these are considered suspicious and CT PET recommended. Please note that all CT scans at this facility use dose modulation, iterative reconstruction, and/or weight-based dosing when appropriate to reduce radiation dose to as low as reasonably achievable. Dictated by Rayo Mcdonald MD @ 01/10/2025 10:38:59 AM (Electronically Signed)
== END 2025-01-10 09:40 | disposition home or self-care (01) ==
PROVIDERS: PCP Physician Assistant Medical; Visit Provider Internal Medicine Pulmonary Disease
DX: J44.89 Other specified chronic obstructive pulmonary disease (principal); R91.8 Other nonspecific abnormal finding of lung field; J43.9 Emphysema, unspecified; S22.31XS Fracture of one rib, right side, sequela; I70.0 Atherosclerosis of aorta; J98.4 Other disorders of lung
CPT/HCPCS: 71250